=== PATIENT | female | born 1935 | race Caucasian/White ===

== ENCOUNTER 2017-09-25 17:59 | Emergency (ER) | payer MEDICARE, BC ==
--- NOTE | 2017-09-25 18:21 | Emergency Department Record ---
History of Present Illness - General Chief complaint: Lower Extremity Pain Stated complaint: RT LEG PAIN/SWELLING Time Seen by Provider: 09/25/17 18:07 Source: Patient Mode of Arrival: Ambulatory Limitations: No limitations - History of Present Illness Initial comments: The patient is here due to being sent down to the ER from rehab due to possibly having a DVT. The patient had a R knee replacement about 7 weeks ago and has had R leg swelling since. She did have a neg R leg Doppler about 3-4 weeks ago in Rehab. Today she went to her first rehab appointment here at [facility] and the therapist was concerned about a DVT so the patient was sent to the ER. She denies any CP, new SOB, leg pain, numbness, tingling or weakness. Additionally the patient is on Xarelto for Afib. MD Complaint: Extremity swelling Onset/Timin -: Week(s) Location: Right, Lower Leg History of Same: No Severity scale (1-10): 5 Quality: Aching Consistency: Constant Improves with: Nothing Worsens with: Walking, Weight bearing Associated Symptoms: Denies other symptoms - Related Data Home Medications Medication Instructions Recorded Confirmed Last Taken Magnesium 200 mg PO DAILY 09/25/17 09/25/17 Unknown Allergies Allergy/AdvReac Type Severity Reaction Status Date / Time cephalexin monohydrate Allergy Severe DIARRHEA Unverified 04/04/17 11:31 [From KEFLEX] nitroglycerin Allergy Severe HYPOTENSION Unverified 04/04/17 11:31 Penicillins Allergy Severe DIFFICULTY Unverified 04/04/17 11:31 BREATHING Sulfa (Sulfonamide Allergy Intermediate RASH Unverified 04/04/17 11:31 Antibiotics) codeine Allergy Unknown HYPERSENSIT Unverified 04/04/17 11:31 IVITY dronedarone HCl [From MULTAQ] Allergy Unknown HYPERSENSIT Unverified 04/04/17 11 :31 IVITY erythromycin base Allergy Unknown HIVES Unverified 04/04/17 11:31 [ERYTHROMYCIN BASE] gatifloxacin [From ZYMAXID] Allergy Unknown HYPERSENSIT Unverified 04/04/17 11: 31 IVITY hydrocodone bitartrate Allergy Unknown HYPERSENSIT Unverified 04/04/17 11:31 [From VICODIN] IVITY hydromorphone HCl Allergy Unknown HYPERSENSIT Unverified 04/04/17 11:31 IVITY levofloxacin [From LEVAQUIN] Allergy Unknown HYPERSENSIT Unverified 04/04/17 11: 31 IVITY metoprolol tartrate Allergy Unknown HYPERSENSIT Unverified 04/04/17 11:31 [From LOPRESSOR] IVITY minocycline HCl Allergy Unknown HYPERSENSIT Unverified 04/04/17 11:31 [From SOLODYN] IVITY morphine [MORPHINE] Allergy Unknown HYPERSENSIT Unverified 04/04/17 11:31 IVITY nitrofurantoin Allergy Unknown HYPERSENSIT Unverified 04/04/17 11:31 [NITROFURANTOIN] IVITY butorphanol tartrate AdvReac Unknown HYPERSENSIT Unverified 04/04/17 11:31 [From Stadol] IVITY blue tape Allergy PT UNSURE Uncoded 09/13/16 22:57 OF REACTION Travel Screening - Travel/Exposure Within Last 30 Days Have you traveled within the last 30 days?: No Review of Systems Constitutional: Denies: Chills, Fever Eyes: Denies: Eye discharge ENT: Denies: Congestion Respiratory: Denies: Cough, Dyspnea, Hemoptysis Cardiovascular: Denies: Arrhythmia, Chest pain Past Medical History - SOCIAL HISTORY Smoking Status: Former smoker Alcohol Use: None Drug Use: None - RESPIRATORY Hx Respiratory Disorders: Yes Hx Asthma: Yes Hx COPD: Yes Hx Pulmonary Embolism: Yes - CARDIOVASCULAR Hx Cardio Disorders: Yes Hx Irregular Heartbeat: Yes (a-fib) Hx Pacemaker/Defib: Yes (2010) - NEURO Hx Neuro Disorders: Yes 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) Hx Dizziness: Yes - GI Hx GI Disorders: Yes Hx Abdominal Pain: Yes Hx Hiatal Hernia: Yes (had surgery) Hx Liver Disease: Yes (?had liver stone removed 2014 (elevated liver enzymes @ that time)) Hx Nausea/Vomiting: Yes Comment:: hobson's esophagus - Hx Genitourinary Disorders: Yes Hx UTI: Yes (not recent) - ENDOCRINE Hx Endocrine Disorders: No - MUSCULOSKELETAL Hx Musculoskeletal Disorders: Yes Hx Arthritis: Yes (knees, neck, shoulders) - PSYCH Hx Psych Problems: Yes Hx Anxiety: Yes (situational) Hx Depression: Yes (situational) - HEMATOLOGY/ONCOLOGY Hx Hematology/Oncology Disorders: Yes Hx Blood Transfusions: Yes (FFP w/ ulcers) Family Medical History Any Significant Family History?: Yes Hx Cancer: Mother, Brother/Sister *Cancer Comment: pancreatic, lung, breast Hx Heart Disease: Father, Brother/Sister Physical Exam - General General Appearance: Alert, Oriented x3, Cooperative, No acute distress - Head Head exam: Atraumatic, Normocephalic, Normal inspection - Eye Eye exam: Normal appearance, PERRL - Neck Neck exam: Normal inspection, Full ROM. negative: Tenderness - Respiratory Respiratory exam: Rhonchi (at the bases. Prob chronic per the patient.). negative: Normal lung sounds bilaterally, Accessory muscle use, Chest wall tenderness, Decreased breath sounds, Rales, Respiratory distress - Cardiovascular Cardiovascular Exam: Normal heart sounds, Irregular rhythm. negative: Normal rhythm - GI/Abdominal GI/Abdominal exam: Soft, Normal bowel sounds. negative: Tenderness - Extremities Extremities exam: Normal capillary refill, Pedal edema (Trace R leg.), Other ( The feet DP pulses are 2+ and equal bilaterally.). negative: Normal inspection , Tenderness - Neurological Neurological exam: Alert, Normal gait (The patient is ambulating with her cane with no difficulty.). negative: Abnormal gait, Motor sensory deficit Course Vital Signs 09/25/17 18:02 Temperature 97.4 F L Pulse Rate 78 Respiratory 20 Rate Blood Pressure 135/71 Pulse Ox 94 L - Reevaluation(s) Reevaluation #1: The patient is resting comfortably with no new complaints. She is presently undergoing the doppler test. 09/25/17 18:33 Medical Decision Making - Data Complexity MDM Data: X-Ray Ordered and/or Reviewed - Radiology Data Radiology results: Report reviewed (R leg Doppler: Neg.) Disposition Disposition: Discharge Clinical Impression: Right leg swelling Disposition: Home, Self-Care Condition: (2) Stable Instructions: Leg Edema (ED) Additional Instructions: Please continue your regular medicines and use a compression stocking to the R leg during the day. Please see your PCP for recheck next week if not better. Return to the ER for any pain, increased swelling, fever, redness or knee issues. Forms: Patient Portal Access Time of Disposition: 18:35 Quality - Quality Measures Quality Measures: N/A - Blood Pressure Screening View Details: Yes Does Patient Have Any of the Following: No Blood Pressure Classification: Hypertensive Reading Systolic Measurement: 141 Diastolic Measurement: 70 Screening for High Blood Pressure: < Normal BP, F/U Not Required > [G8783]
--- NOTE | 2017-09-25 19:23 | Emergency Department Record ---
History of Present Illness - General Chief complaint: Lower Extremity Pain Stated complaint: RT LEG PAIN/SWELLING Time Seen by Provider: 09/25/17 18:07 Source: Patient Mode of Arrival: Ambulatory Limitations: No limitations - History of Present Illness Onset/Timin -: Week(s) Location: Right, Lower Leg History of Same: No Severity scale (1-10): 5 Quality: Aching Consistency: Constant Improves with: Nothing Worsens with: Walking, Weight bearing Associated Symptoms: Denies other symptoms - Related Data Home Medications Medication Instructions Recorded Confirmed Last Taken Magnesium 200 mg PO DAILY 09/25/17 09/25/17 Unknown Allergies Allergy/AdvReac Type Severity Reaction Status Date / Time cephalexin monohydrate Allergy Severe DIARRHEA Unverified 04/04/17 11:31 [From KEFLEX] nitroglycerin Allergy Severe HYPOTENSION Unverified 04/04/17 11:31 Penicillins Allergy Severe DIFFICULTY Unverified 04/04/17 11:31 BREATHING Sulfa (Sulfonamide Allergy Intermediate RASH Unverified 04/04/17 11:31 Antibiotics) codeine Allergy Unknown HYPERSENSIT Unverified 04/04/17 11:31 IVITY dronedarone HCl [From MULTAQ] Allergy Unknown HYPERSENSIT Unverified 04/04/17 11 :31 IVITY erythromycin base Allergy Unknown HIVES Unverified 04/04/17 11:31 [ERYTHROMYCIN BASE] gatifloxacin [From ZYMAXID] Allergy Unknown HYPERSENSIT Unverified 04/04/17 11: 31 IVITY hydrocodone bitartrate Allergy Unknown HYPERSENSIT Unverified 04/04/17 11:31 [From VICODIN] IVITY hydromorphone HCl Allergy Unknown HYPERSENSIT Unverified 04/04/17 11:31 IVITY levofloxacin [From LEVAQUIN] Allergy Unknown HYPERSENSIT Unverified 04/04/17 11: 31 IVITY metoprolol tartrate Allergy Unknown HYPERSENSIT Unverified 04/04/17 11:31 [From LOPRESSOR] IVITY minocycline HCl Allergy Unknown HYPERSENSIT Unverified 04/04/17 11:31 [From SOLODYN] IVITY morphine [MORPHINE] Allergy Unknown HYPERSENSIT Unverified 04/04/17 11:31 IVITY nitrofurantoin Allergy Unknown HYPERSENSIT Unverified 04/04/17 11:31 [NITROFURANTOIN] IVITY butorphanol tartrate AdvReac Unknown HYPERSENSIT Unverified 04/04/17 11:31 [From Stadol] IVITY blue tape Allergy PT UNSURE Uncoded 09/13/16 22:57 OF REACTION Travel Screening - Travel/Exposure Within Last 30 Days Have you traveled within the last 30 days?: No Review of Systems Constitutional: Denies: Chills, Fever Eyes: Denies: Eye discharge ENT: Denies: Congestion Respiratory: Denies: Cough, Dyspnea, Hemoptysis Cardiovascular: Denies: Arrhythmia, Chest pain Past Medical History - SOCIAL HISTORY Smoking Status: Former smoker Alcohol Use: None Drug Use: None - RESPIRATORY Hx Respiratory Disorders: Yes Hx Asthma: Yes Hx COPD: Yes Hx Pulmonary Embolism: Yes - CARDIOVASCULAR Hx Cardio Disorders: Yes Hx Irregular Heartbeat: Yes (a-) Hx Pacemaker/Defib: Yes (2010) - NEURO Hx Neuro Disorders: Yes 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) Hx Dizziness: Yes - GI Hx GI Disorders: Yes Hx Abdominal Pain: Yes Hx Hiatal Hernia: Yes (had surgery) Hx Liver Disease: Yes (?had liver stone removed 2014 (elevated liver enzymes @ that time)) Hx Nausea/Vomiting: Yes Comment:: hobson's esophagus - Hx Genitourinary Disorders: Yes Hx UTI: Yes (not recent) - ENDOCRINE Hx Endocrine Disorders: No - MUSCULOSKELETAL Hx Musculoskeletal Disorders: Yes Hx Arthritis: Yes (knees, neck, shoulders) - PSYCH Hx Psych Problems: Yes Hx Anxiety: Yes (situational) Hx Depression: Yes (situational) - HEMATOLOGY/ONCOLOGY Hx Hematology/Oncology Disorders: Yes Hx Blood Transfusions: Yes (FFP w/ ulcers) Family Medical History Any Significant Family History?: Yes Hx Cancer: Mother, Brother/Sister *Cancer Comment: pancreatic, lung, breast Hx Heart Disease: Father, Brother/Sister Physical Exam - General Limitations: No limitations Course Vital Signs 09/25/17 18:02 Temperature 97.4 F L Pulse Rate 78 Respiratory 20 Rate Blood Pressure 135/71 Pulse Ox 94 L - Reevaluation(s) Reevaluation #1: 09/25/17 19:21 Doppler RLE: No evidence for DVT Patient and family were updated on all results, patient verbalizes understanding of all results and appears stable for discharge at this time. Disposition Disposition: Discharge Clinical Impression: Right leg swelling Disposition: Home, Self-Care Condition: (2) Stable Instructions: Leg Edema (ED) Additional Instructions: Please continue your regular medicines and use a compression stocking to the R leg during the day. Please see your PCP for recheck next week if not better. Return to the ER for any pain, increased swelling, fever, redness or knee issues. Forms: Patient Portal Access Time of Disposition: 19:23 Quality - Quality Measures Quality Measures: N/A - Blood Pressure Screening Does Patient Have Any of the Following: No Blood Pressure Classification: Hypertensive Reading Systolic Measurement: 141 Diastolic Measurement: 70 Screening for High Blood Pressure: < First Hypertensive BP, F/U Documented > [ G8950] First Hypertensive Follow-up Interventions: Referral to alternative/primary care provider.
--- NOTE | 2017-09-26 20:55 | US VENOUS DOPPLER REPORT ---
EXAM: ULTRASOUND VENOUS DOPPLER LOWER EXT RT HISTORY: KNEE REPLACEMENT IN 2016. REDNESS AND SWELLING TODAY. TECHNIQUE: Gamino scale, color Doppler, and duplex Doppler evaluation of the deep venous structures of the right lower extremity from the common femoral vein through the popliteal vein is performed. Gamino scale imaging with color Doppler evaluation of the lower leg veins is also performed. COMPARISON: None. FINDINGS: Gamino scale images demonstrate the common femoral vein, greater saphenous vein, deep femoral vein, superficial femoral vein, and popliteal vein to be anechoic, and easily compressible. Normal venous waveforms with phasicity and augmentation are noted at all levels. No evidence of thrombus. The posterior tibial, peroneal, and anterior tibial veins appear patent, to the extent visualized. IMPRESSION: NO EVIDENCE OF DEEP VENOUS THROMBOSIS WITHIN THE RIGHT LOWER EXTREMITY. JOB NUMBER: [id number] [facility]
== END 2017-09-25 19:34 | disposition home or self-care (01) ==
LOC: ER 17:59
DX: R60.0 Localized edema (principal); M79.661 Pain in right lower leg; I48.91 Unspecified atrial fibrillation; Z79.01 Long term (current) use of anticoagulants; Z96.651 Presence of right artificial knee joint
CPT/HCPCS: 99283

== ENCOUNTER 2018-01-07 21:50 | Emergency (ER) | payer MEDICARE, BC ==
--- NOTE | 2018-01-07 22:21 | Emergency Department Record ---
History of Present Illness - General Chief Complaint: Hypertension Stated Complaint: HYPERTENSION Time Seen by Provider: 01/07/18 21:58 Source: Patient Mode of Arrival: Ambulatory Limitations: No limitations - History of Present Illness Initial Comments: 82 yo female presents to ED for evaluation of an elevated blood pressure reading at home (190's systolic). Patient denies any changes in her blood pressure medications, and denies any missed doses. Patient denies chest pain, weakness, or headache symptoms. Patient denies fevers, chills, or productive cough symptoms, and denies recent illness. 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 Patient denies focal weakness or slurred speech symptoms. MD Complaint: Other Onset/Timin -: Days(s) Timing: Gradual onset Description: Difficulty walking History of Same: No Severity: Moderate Worsens With: Nothing - Janette Coma Scale Eye Response: (4) Open spontaneously Motor Response: (6) Obeys commands Verbal Response: (5) Oriented [place] Total: 15 - Related Data Allergies Allergy/AdvReac Type Severity Reaction Status Date / Time cephalexin monohydrate Allergy Severe DIARRHEA Unverified 04/04/17 11:31 [From KEFLEX] nitroglycerin Allergy Severe HYPOTENSION Unverified 04/04/17 11:31 Penicillins Allergy Severe DIFFICULTY Unverified 04/04/17 11:31 BREATHING Sulfa (Sulfonamide Allergy Intermediate RASH Unverified 04/04/17 11:31 Antibiotics) codeine Allergy Unknown HYPERSENSIT Unverified 04/04/17 11:31 IVITY dronedarone HCl [From MULTAQ] Allergy Unknown HYPERSENSIT Unverified 04/04/17 11 :31 IVITY erythromycin base Allergy Unknown HIVES Unverified 04/04/17 11:31 [ERYTHROMYCIN BASE] gatifloxacin [From ZYMAXID] Allergy Unknown HYPERSENSIT Unverified 04/04/17 11: 31 IVITY hydrocodone bitartrate Allergy Unknown HYPERSENSIT Unverified 04/04/17 11:31 [From VICODIN] IVITY hydromorphone HCl Allergy Unknown HYPERSENSIT Unverified 04/04/17 11:31 IVITY levofloxacin [From LEVAQUIN] Allergy Unknown HYPERSENSIT Unverified 04/04/17 11: 31 IVITY metoprolol tartrate Allergy Unknown HYPERSENSIT Unverified 04/04/17 11:31 [From LOPRESSOR] IVITY minocycline HCl Allergy Unknown HYPERSENSIT Unverified 04/04/17 11:31 [From SOLODYN] IVITY morphine [MORPHINE] Allergy Unknown HYPERSENSIT Unverified 04/04/17 11:31 IVITY nitrofurantoin Allergy Unknown HYPERSENSIT Unverified 04/04/17 11:31 [NITROFURANTOIN] IVITY butorphanol tartrate AdvReac Unknown HYPERSENSIT Unverified 04/04/17 11:31 [From Stadol] IVITY blue tape Allergy PT UNSURE Uncoded 09/13/16 22:57 OF REACTION Travel Screening - Travel/Exposure Within Last 30 Days Have you traveled within the last 30 days?: No Review of Systems Constitutional: Denies: Chills, Fever, Malaise, Night sweats Eyes: Denies: Eye discharge, Eye pain ENT: Denies: Congestion, Ear pain, Epistaxis Respiratory: Denies: Cough, Dyspnea Cardiovascular: Denies: Chest pain, Dyspnea on exertion Endocrine: Denies: Fatigue, Heat or cold intolerance Gastrointestinal: Denies: Abdominal pain, Nausea, Vomiting Genitourinary: Denies: Incontinence, Retention Musculoskeletal: Denies: Arthralgia, Back pain, Gout, Joint swelling Skin: Denies: Bruising, Change in color Neurological: Reports: Vertigo (intermittent). 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) Hx Dizziness: Yes - GI Hx GI Disorders: Yes Hx Abdominal Pain: Yes Hx Hiatal Hernia: Yes (had surgery) Hx Liver Disease: Yes (?had liver stone removed 2014 (elevated liver enzymes @ that time)) Hx Nausea/Vomiting: Yes Comment:: hobson's esophagus - Hx Genitourinary Disorders: Yes Hx UTI: Yes (not recent) - ENDOCRINE Hx Endocrine Disorders: No - MUSCULOSKELETAL Hx Musculoskeletal Disorders: Yes Hx Arthritis: Yes (knees, neck, shoulders) - PSYCH Hx Psych Problems: Yes Hx Anxiety: Yes (situational) Hx Depression: Yes (situational) - HEMATOLOGY/ONCOLOGY Hx Hematology/Oncology Disorders: Yes Hx Blood Transfusions: Yes (FFP w/ ulcers) Family Medical History Any Significant Family History?: Yes Hx Cancer: Mother, Brother/Sister *Cancer Comment: pancreatic, lung, breast Hx Heart Disease: Father, Brother/Sister Physical Exam - General General Appearance: Alert, Oriented x3, Cooperative, No acute distress Limitations: No limitations - Head Head exam: Atraumatic, Normocephalic, Normal inspection Head exam detail: negative: Abrasion, Contusion, Pearson's sign, General tenderness, Hematoma, Laceration - Eye Eye exam: Normal appearance. negative: Conjunctival injection, Periorbital swelling, Periorbital tenderness, Scleral icterus - ENT Ear exam: negative: Auricular hematoma, Auricular trauma Nasal Exam: negative: Active bleeding, Discharge, Dried blood, Foreign body Mouth exam: negative: Drooling, Laceration, Muffled voice, Tongue elevation - Neck Neck exam: Normal inspection. negative: Meningismus, Tenderness - Respiratory Respiratory exam: Normal lung sounds bilaterally. negative: Rales, Respiratory distress, Rhonchi, Stridor - Cardiovascular Cardiovascular Exam: Regular rate, Normal rhythm, Normal heart sounds - GI/Abdominal GI/Abdominal exam: Soft. negative: Rebound, Rigid, Tenderness - Rectal Rectal exam: Deferred - exam: Deferred - Extremities Extremities exam: Normal inspection. negative: Calf tenderness, Pedal edema, Tenderness - Back Back exam: Denies: CVA tenderness (R), CVA tenderness (L) - Neurological Neurological exam: Alert, Normal gait, Oriented X3. negative: Motor sensory deficit - Psychiatric Psychiatric exam: Normal affect, Normal mood - Skin Skin exam: Normal color. negative: Abrasion Type of lesion: negative: abrasion Course Vital Signs 01/07/18 22:01 Temperature 97.8 F Pulse Rate [ 80 Pulse Ox Probe] Respiratory 28 H Rate Blood Pressure 141/83 [Right Arm] Pulse Ox 92 L - Reevaluation(s) Reevaluation #1: 01/07/18 22:17 Patient's RR reassessed, 20. Patient also reports wearing oxygen at night (93% on exam here), denies fevers, chills, or cough symptoms. Patient reports that as her BP is now normal and her home cough was likely off, she is ready to go home at this time. Disposition Disposition: Discharge Clinical Impression: Elevated blood pressure reading Disposition: Home, Self-Care Condition: (2) Stable Instructions: Hypertension (ED) Additional Instructions: Return to ED if your symptoms worsen or if you have any concerns. Follow-up with your family doctor in 3-5 days as directed. Time of Disposition: 22:21 Quality - Quality Measures Quality Measures: N/A - Blood Pressure Screening Does Patient Have Any of the Following: Active Dx of HTN Blood Pressure Classification: Pre-Hypertensive BP Reading Systolic Measurement: 141 Diastolic Measurement: 83 Screening for High Blood Pressure: Patient Exclusion, Hx of HTN [G9744]
== END 2018-01-07 22:26 | disposition home or self-care (01) ==
LOC: ER 21:50
DX: I10 Essential (primary) hypertension (principal); J44.9 Chronic obstructive pulmonary disease, unspecified; R26.2 Difficulty in walking, not elsewhere classified; I48.91 Unspecified atrial fibrillation; Z87.891 Personal history of nicotine dependence
CPT/HCPCS: 99282

== ENCOUNTER 2019-01-05 17:10 | Emergency (ER) | payer MEDICARE, BC ==
[2019-01-05 17:32] LABS: URINE APPEARANCE CLEAR; URINE BILIRUBIN NEGATIVE (NEGATIVE); URINE BLOOD NEGATIVE (NEGATIVE); URINE COLOR YELLOW; URINE GLUCOSE (UA) NEGATIVE (NEGATIVE); URINE KETONE NEGATIVE (NEGATIVE); URINE NITRITE NEGATIVE (NEGATIVE); URINE PROTEIN NEGATIVE (NEGATIVE); URINE UROBILINOGEN 0.2 E.U./dL (0.20 - 1.00)
[2019-01-05] MEDS ORDERED: ONDANSETRON HCL IV 4 MG/2 ML VIAL IVP ONE (17:39)
[2019-01-05] MEDS ORDERED: MORPHINE SULFATE 10 MG/ML VIAL IVP ONE (17:39)
[2019-01-05 17:41] LABS: URINE LEUKOCYTE ESTERASE TRACE (NEGATIVE); URINE RBC 0 - 2 (NONE SEEN); URINE WBC 0 - 2 (0-2/hpf)
--- NOTE | 2019-01-05 17:55 | Emergency Department Record ---
History of Present Illness - General Source: Patient Mode of Arrival: Ambulatory Limitations: No limitations - History of Present Illness Initial comments: pt has had r ap and flank pain since this am that is getting worse. she has n but no v/c/d. she has had hiatal hernia repair and cari. she has afib and is on xarelto. she has a hx of ulcers. Onset/Timin -: Hour(s) Radiation: R flank Severity scale (1-10): 8 Quality: Aching Consistency: Constant Patient : No Associated Symptoms: Abdominal pain, Nausea/vomiting <Lamar Bower - Last Filed: 01/05/19 19:05> <Boubacar Frazier - Last Filed: 01/05/19 21:35> - General Chief complaint: Flank Pain Stated complaint: ABD PAIN / LOWER BACK AND SIDE Time Seen by Provider: 01/05/19 17:32 - Related Data Allergies Allergy/AdvReac Type Severity Reaction Status Date / Time cephalexin monohydrate Allergy Severe DIARRHEA Verified 01/05/19 17:26 [From KEFLEX] nitroglycerin Allergy Severe HYPOTENSION Verified 01/05/19 17:26 Penicillins Allergy Severe DIFFICULTY Verified 01/05/19 17:26 BREATHING Sulfa (Sulfonamide Allergy Intermediate RASH Verified 01/05/19 17:26 Antibiotics) codeine Allergy Unknown HYPERSENSIT Verified 01/05/19 17:26 IVITY dronedarone HCl [From MULTAQ] Allergy Unknown HYPERSENSIT Verified 01/05/19 17: 26 IVITY erythromycin base Allergy Unknown HIVES Verified 01/05/19 17:26 [ERYTHROMYCIN BASE] gatifloxacin [From ZYMAXID] Allergy Unknown HYPERSENSIT Verified 01/05/19 17:26 IVITY hydrocodone bitartrate Allergy Unknown HYPERSENSIT Verified 01/05/19 17:26 [From VICODIN] IVITY hydromorphone HCl Allergy Unknown HYPERSENSIT Verified 01/05/19 17:26 IVITY levofloxacin [From LEVAQUIN] Allergy Unknown HYPERSENSIT Verified 01/05/19 17:26 IVITY metoprolol tartrate Allergy Unknown HYPERSENSIT Verified 01/05/19 17:26 [From LOPRESSOR] IVITY minocycline HCl Allergy Unknown HYPERSENSIT Verified 01/05/19 17:26 [From SOLODYN] IVITY morphine [MORPHINE] Allergy Unknown HYPERSENSIT Verified 01/05/19 17:26 IVITY nitrofurantoin Allergy Unknown HYPERSENSIT Verified 01/05/19 17:26 [NITROFURANTOIN] IVITY butorphanol tartrate AdvReac Unknown HYPERSENSIT Verified 01/05/19 17:26 [From Stadol] IVITY blue tape Allergy PT UNSURE Uncoded 01/05/19 17:26 OF REACTION Travel Screening - Travel/Exposure Within Last 30 Days Have you traveled within the last 30 days?: No - Travel/Exposure Within Last Year Have you traveled outside the [place] in the last year?: No - Additonal Travel Details Have you been exposed to anyone with a communicable illness?: No - Travel Symptoms Symptom Screening: None <Lamar Bower - Last Filed: 01/05/19 19:05> Review of Systems Reviewed: No additional complaints except as noted below Constitutional: Reports: As per HPI. Denies: Chills, Fever, Malaise, Night sweats, Weakness, Weight change Eyes: Reports: As per HPI. Denies: Eye discharge, Eye pain, Photophobia, Vision change ENT: Reports: As per HPI. Denies: Congestion, Dental pain, Ear pain, Epistaxis , Hearing loss, Throat pain Respiratory: Reports: As per HPI. Denies: Cough, Dyspnea, Hemoptysis, Stridor, Wheezes Cardiovascular: Reports: As per HPI, Arrhythmia. Denies: Chest pain, Dyspnea on exertion, Edema, Murmurs, Orthopnea, Palpitations, Paroxysmal nocturnal dyspnea, Rheumatic Fever, Syncope Endocrine: Reports: As per HPI. Denies: Fatigue, Heat or cold intolerance, Polydipsia, Polyuria Gastrointestinal: Reports: As per HPI, Abdominal pain, Nausea. Denies: Constipation, Diarrhea, Hematemesis, Hematochezia, Melena, Vomiting Genitourinary: Reports: As per HPI. Denies: Abnormal menses, Discharge, Dyspareunia, Dysuria, Frequency, Hematuria, Incontinence, Retention, Urgency Musculoskeletal: Reports: As per HPI. Denies: Arthralgia, Back pain, Gout, Joint swelling, Myalgia, Neck pain Skin: Reports: As per HPI. Denies: Bruising, Change in color, Change in hair/ nails, Lesions, Pruritus, Rash Neurological: Reports: As per HPI. Denies: Abnormal gait, Confusion, Headache, Numbness, Paresthesias, Seizure, Tingling, Tremors, Vertigo, Weakness Psychiatric: Reports: As per HPI. Denies: Anxiety, Auditory hallucinations, Depression, Homicidal thoughts, Suicidal thoughts, Visual hallucinations Hematological/Lymphatic: Reports: As per HPI. 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) Hx Dizziness: Yes - GI Hx GI Disorders: Yes Hx Abdominal Pain: Yes Hx Hiatal Hernia: Yes (had surgery) Hx Liver Disease: Yes (?had liver stone removed 2014 (elevated liver enzymes @ that time)) Hx Nausea/Vomiting: Yes Comment:: hobson's esophagus - Hx Genitourinary Disorders: Yes Hx UTI: Yes (not recent) - ENDOCRINE Hx Endocrine Disorders: No - MUSCULOSKELETAL Hx Musculoskeletal Disorders: Yes Hx Arthritis: Yes (knees, neck, shoulders) - PSYCH Hx Psych Problems: Yes Hx Anxiety: Yes (situational) Hx Depression: Yes (situational) - HEMATOLOGY/ONCOLOGY Hx Hematology/Oncology Disorders: Yes Hx Blood Transfusions: Yes (FFP w/ ulcers) <Lamar Bower - Last Filed: 01/05/19 19:05> Family Medical History Any Significant Family History?: No Hx Cancer: Mother, Brother/Sister *Cancer Comment: pancreatic, lung, breast Hx Heart Disease: Father, Brother/Sister <Lamar Bower - Last Filed: 01/05/19 19:05> Physical Exam - General General Appearance: Alert, Oriented x3, Cooperative, Moderate distress - Head Head exam: Normal inspection - Eye Eye exam: Normal appearance, PERRL, EOMI Pupils: Normal accommodation - ENT ENT exam: Normal exam, Mucous membranes moist, Normal external ear exam, Normal orophraynx Ear exam: Normal external inspection. negative: External canal tenderness Nasal Exam: Normal inspection. negative: Discharge, Sinus tenderness Mouth exam: Normal external inspection, Tongue normal Teeth exam: Normal inspection. negative: Dental caries Throat exam: Normal inspection. negative: Tonsillar erythema, Tonsillar exudate - Neck Neck exam: Normal inspection, Full ROM. negative: Tenderness - Respiratory Respiratory exam: Normal lung sounds bilaterally. negative: Respiratory distress - Cardiovascular Cardiovascular Exam: Normal heart sounds, Irregular rhythm, Tachycardia - GI/Abdominal GI/Abdominal exam: Soft, Normal bowel sounds, Tenderness - Rectal Rectal exam: Deferred - exam: Deferred - Extremities Extremities exam: Normal inspection, Full ROM, Normal capillary refill. negative: Tenderness - Back Back exam: Reports: CVA tenderness (R), Full ROM. Denies: Muscle spasm, Rash noted, Tenderness - Neurological Neurological exam: Alert, CN II-XII intact, Normal gait, Oriented X3, Reflexes normal - Psychiatric Psychiatric exam: Normal affect, Normal mood - Skin Skin exam: Dry, Intact, Normal color, Warm <Lamar Bowre - Last Filed: 01/05/19 19:05> Course Vital Signs 01/05/19 17:13 Temperature 97.9 F Pulse Rate 117 H Respiratory 18 Rate Blood Pressure 132/95 Pulse Ox 94 L - Reevaluation(s) Reevaluation #1: 01/05/19 18:[address] is neg for acute. pt continues to have pain. pt refuses morphine and states she can only take tramadol with benadryl. pn is still a 7/ 10. gi cocktail did not help pain. sinc pt is still in so much pain i am ordering a ct w contrast. pts labs are unremarkable and offer no explanation for her significant pain. i had initially ordered the ct w/o contrast because i was concerned about her aorta and did not want to wait for her kidney function to get a ct Reevaluation #2: 01/05/19 19:05 care is being turned over to dr frazier pending ct with contrast <Lamar Bower - Last Filed: 01/05/19 19:05> Vital Signs 01/05/19 01/05/19 01/05/19 17:13 18:57 21:06 Temperature 97.9 F Pulse Rate 117 H Pulse Rate [ 75 86 Pulse Ox Probe] Respiratory 18 18 16 Rate Blood Pressure 132/95 Blood Pressure 129/88 125/81 [Left] Pulse Ox 94 L 95 93 L - Reevaluation(s) Reevaluation #3: The patient is doing well at this time. She is still having mild R flank pain but no nausea, vomiting, or fever. She states the pain is improved and she is very thirsty and is drinking fluids well. I did discuss the neg CT with contrast and the fact it did not demonstrate any R flank abnormality. The CT did demonstrate mild gastric wall thickening but that is not where the patient' s pain is located. She does feel comfortable going home and is instructed to use her home Tylenol and Tramadol as needed for pain. The patient is up ambulating normally with no problems or issues. 01/05/19 21:23 01/05/19 21:35 <Boubacar Frazier - Last Filed: 01/05/19 21:35> Medical Decision Making - Lab Data Result diagrams: 01/05/19 17:55 01/05/19 17:55 Lab Results 01/05/19 Range/Units 17: Urine Color Yellow Urine Appearance Clear Urine pH 5.5 (5.0-8.0) Ur Specific [place] 1.015 (1.002-1.030) Urine Protein Negative (NEGATIVE) Urine Glucose (UA) Negative (NEGATIVE) Urine Ketones Negative (NEGATIVE) Urine Blood Negative (NEGATIVE) Urine Nitrite Negative (NEGATIVE) Urine Bilirubin Negative (NEGATIVE) Urine Urobilinogen 0.2 (0.20 - 1.00) E.U./dL Ur Leukocyte Esterase Trace H (NEGATIVE) Urine RBC 0 - 2 (NONE SEEN) Urine WBC 0 - 2 (0-2/hpf) Ur Epithelial Cells 3 - 6 (FEW) <Lamar Bower - Last Filed: 01/05/19 19:05> - Data Complexity MDM Data: X-Ray Ordered and/or Reviewed - Lab Data Result diagrams: 01/05/19 17:55 01/05/19 17:55 Lab Results 01/05/19 01/05/19 01/05/19 Range/Units 17:26 17:55 17:55 WBC 8.7 (4.2-12.2) K/uL RBC 4.89 (3.80-5.40) M/uL Hgb 13.3 (11.6-16.0) gm/dl Hct 42.6 (35.0-47.0) % MCV 87.1 (81-97) fl MCH 27.2 (27-33) pg MCHC 31.2 L (32-36) g/dl RDW 15.6 H (11.5-14.5) % Plt Count 310 (130-400) K/uL MPV 9.7 (7.4-10.4) fl Gran % 65.2 (47-80) % Lymphocytes % 19.7 (16-45) % Monocytes % 11.4 H (0-9) % Eosinophils % 3.4 (0-6) % Basophils % 0.3 (0-6) % Sodium 138 (136-145) mmol/L Potassium 5.2 H (3.4-4.5) mmol/L Chloride 99 (98-107) mmol/L Carbon Dioxide 26.0 (22-29) mmol/L Anion Gap 13.0 (7-16) BUN 16 (8-23) mg/dL Creatinine 0.9 (0.5-0.9) mg/dL Estimated GFR > 60 mL/min Random Glucose 95 (74-109) mg/dL Lactic Acid (0.5-2.2) mmol/L Calcium 9.0 (8.8-10.2) mg/dL Total Bilirubin 0.30 (0.2-1.0) mg/dL AST 22 (10.0-35.0) U/L ALT 9 (<33) U/L Alkaline Phosphatase 53 (45-87) U/L Total Protein 6.9 (6.6-8.7) g/dL Albumin 3.9 L (4.0-5.0) g/dL Globulin 3.0 (1.4-4.8) gm/dL Albumin/Globulin Ratio 1.3 (1.1-1.8) Lipase 14 (13-60) U/L Urine Color Yellow Urine Appearance Clear Urine pH 5.5 (5.0-8.0) Ur Specific [place] 1.015 (1.002-1.030) Urine Protein Negative (NEGATIVE) Urine Glucose (UA) Negative (NEGATIVE) Urine Ketones Negative (NEGATIVE) Urine Blood Negative (NEGATIVE) Urine Nitrite Negative (NEGATIVE) Urine Bilirubin Negative (NEGATIVE) Urine Urobilinogen 0.2 (0.20 - 1.00) E.U./dL Ur Leukocyte Esterase Trace H (NEGATIVE) Urine RBC 0 - 2 (NONE SEEN) Urine WBC 0 - 2 (0-2/hpf) Ur Epithelial Cells 3 - 6 (FEW) 01/05/19 Range/Units 19:39 WBC (4.2-12.2) K/uL RBC (3.80-5.40) M/uL Hgb (11.6-16.0) gm/dl Hct (35.0-47.0) % MCV (81-97) fl MCH (27-33) pg MCHC (32-36) g/dl RDW (11.5-14.5) % Plt Count (130-400) K/uL MPV (7.4-10.4) fl Gran % (47-80) % Lymphocytes % (16-45) % Monocytes % (0-9) % Eosinophils % (0-6) % Basophils % (0-6) % Sodium (136-145) mmol/L Potassium (3.4-4.5) mmol/L Chloride (98-107) mmol/L Carbon Dioxide (22-29) mmol/L Anion Gap (7-16) BUN (8-23) mg/dL Creatinine (0.5-0.9) mg/dL Estimated GFR mL/min Random Glucose (74-109) mg/dL Lactic Acid 1.5 (0.5-2.2) mmol/L Calcium (8.8-10.2) mg/dL Total Bilirubin (0.2-1.0) mg/dL AST (10.0-35.0) U/L ALT (<33) U/L Alkaline Phosphatase (45-87) U/L Total Protein (6.6-8.7) g/dL Albumin (4.0-5.0) g/dL Globulin (1.4-4.8) gm/dL Albumin/Globulin Ratio (1.1-1.8) Lipase (13-60) U/L Urine Color Urine Appearance Urine pH (5.0-8.0) Ur Specific [place] (1.002-1.030) Urine Protein (NEGATIVE) Urine Glucose (UA) (NEGATIVE) Urine Ketones (NEGATIVE) Urine Blood (NEGATIVE) Urine Nitrite (NEGATIVE) Urine Bilirubin (NEGATIVE) Urine Urobilinogen (0.20 - 1.00) E.U./dL Ur Leukocyte Esterase (NEGATIVE) Urine RBC (NONE SEEN) Urine WBC (0-2/hpf) Ur Epithelial Cells (FEW) - Radiology Data Radiology results: Report reviewed (Abd CT with Contrast: Neg for acute changes. ) <Boubacar Frazier - Last Filed: 01/05/19 21:35> Disposition <Lamar Bower - Last Filed: 01/05/19 19:05> Disposition: Discharge Time of Disposition: 21:26 <Boubacar Frazier - Last Filed: 01/05/19 21:35> Clinical Impression: Flank pain, acute Disposition: Home, Self-Care Condition: (2) Stable Instructions: Flank Pain (ED) Additional Instructions: Please drink plenty of fluids and take your home pain medicines. Please see your family doctor this week for recheck and please return to the ER for any worsening pain, fever, or vomiting. Forms: Patient Portal Access Quality - Quality Measures Quality Measures: Blunt Head Trauma (>2yr) - Blunt Head Trauma - Adult Quality Measure: Measure #415: Utilization of CT for Minor Blunt Head Trauma ICD10 Codes Entered: Yes Janette Score: Please complete [place] Coma Scale above - Blood Pressure Screening Does Patient Have Any of the Following: No Blood Pressure Classification: Hypertensive Reading Systolic Measurement: 132 Diastolic Measurement: 95 <Lamar Bower - Last Filed: 01/05/19 19:05> - Quality Measures Quality Measures: Blunt Head Trauma (>2yr) - Blunt Head Trauma - Adult Quality Measure: Measure #415: Utilization of CT for Minor Blunt Head Trauma ICD10 Codes Entered: Yes Janette Score: Please complete Janette Coma Scale above - Blood Pressure Screening Does Patient Have Any of the Following: No Blood Pressure Classification: Hypertensive Reading Systolic Measurement: 132 Diastolic Measurement: 95 <Boubacar Frazier - Last Filed: 01/05/19 21:35>
[2019-01-05 18:03] LABS: BASO % 0.3 % (0-6); EOS % 3.4 % (0-6); GRAN % 65.2 % (47-80); HEMATOCRIT 42.6 % (35.0-47.0); HEMOGLOBIN 13.3 gm/dl (11.6-16.0); LYMPH % 19.7 % (16-45); MEAN CELL VOLUME 87.1 fl (81-97); MEAN CORPUSCULAR HEMOGLOBIN 27.2 pg (27-33); MEAN CORPUSCULAR HGB CONC 31.2 g/dl (32-36); MEAN PLATELET VOLUME 9.7 fl (7.4-10.4); MONO % 11.4 % (0-9); PLATELET COUNT 310 K/uL (130-400); RED BLOOD COUNT 4.89 M/uL (3.80-5.40); RED CELL DISTRIBUTION WIDTH 15.6 % (11.5-14.5); WHITE BLOOD COUNT W/O DIFF 8.7 K/uL (4.2-12.2)
[2019-01-05 18:17] LABS: BLOOD UREA NITROGEN 16 mg/dL (8-23); CREATININE 0.9 mg/dL (0.5-0.9); EST GLOMERULAR FILTRATION RATE > 60 mL/min
[2019-01-05 18:18] LABS: LIPASE 14 U/L (13-60); TOTAL PROTEIN 6.9 g/dL (6.6-8.7)
[2019-01-05 18:20] LABS: GLUCOSE,RANDOM 95 mg/dL (74-109)
[2019-01-05 18:22] LABS: ALT/SGPT 9 U/L (<33); AST/SGOT 22 U/L (10.0-35.0)
[2019-01-05 18:23] LABS: ALB/GLOB RATIO 1.3 (1.1-1.8); ALBUMIN 3.9 g/dL (4.0-5.0); ALKALINE PHOSPHATASE 53 U/L (45-87)
[2019-01-05] MEDS ORDERED: MAGNESIUM HYDROXIDE/AL HYDROX 30 ML, LIDOCAINE VISC 2% 15ML 15 ML PO ONE ×2 (18:31)
[2019-01-05] MEDS ORDERED: TRAMADOL HCL 50 MG TABLET PO ONE (18:49)
[2019-01-05] MEDS ORDERED: DIPHENHYDRAMINE HCL 25 MG CAPSULE PO ONE (18:50)
--- NOTE | 2019-01-08 10:40 | CT SCAN REPORT ---
EXAM: CT OF THE ABDOMEN AND PELVIS WITHOUT CONTRAST HISTORY: RIGHT SIDED ABDOMINAL PAIN. TECHNIQUE: Noncontrast images are obtained from the dome of the diaphragm to the symphysis pubis. Comparison: 03/30/15. FINDINGS: The lung bases and pleural spaces are clear except for minor scarring on the left. The liver demonstrates scattered granulomas, but is otherwise unremarkable. The gallbladder is surgically absent. The pancreas is free of focal masses or pancreatic duct distention. Numerous calcified granulomas are present in an otherwise unremarkable spleen. The adrenal glands are normal. The kidneys demonstrate no evidence of hydronephrosis, soft tissue mass or perinephric inflammation. No urolithiasis is demonstrated. The GI tract demonstrates evidence of prior Jose [place] fundoplication. The stomach and small bowel are unremarkable. There is mild diverticular change of the sigmoid colon without diverticulitis. There is no ascites or free air. There is no evidence of retroperitoneal adenopathy. No lytic or blastic lesions are identified in the skeleton. No abdominal wall hernias are seen. IMPRESSION: NO ACUTE INTRAABDOMINAL PROCESS. JOB NUMBER: [id number] [facility]
--- NOTE | 2019-01-08 10:49 | CT SCAN REPORT ---
EXAM: CT OF THE ABDOMEN AND PELVIS WITH CONTRAST HISTORY: FIVE HOURS OF RIGHT ABDOMINAL PAIN. TECHNIQUE: After the intravenous administration of 100 ml Omnipaque 300, axial images are obtained from the dome of the diaphragm to the symphysis pubis. Comparison: 01/05/19. FINDINGS: The lung bases are clear except for mild fibrotic change, predominantly on the left. Scattered hepatic granulomas are present. There is no evidence of intrahepatic biliary dilatation. The gallbladder is surgically absent. The extrahepatic biliary tree is unremarkable. There is pancreatic atrophy, but no mass, peripancreatic inflammation or pancreatic duct distention. Multiple splenic granulomas are present without soft tissue mass. The adrenal glands are normal. There is no hydronephrosis, renal soft tissue mass or perinephric inflammation. There are postoperative changes of hiatal hernia repair. There is mild thickening of the gastric antrum. The small bowel is unremarkable. There is mild diverticular change of the sigmoid colon without diverticulitis. There is no evidence of mesenteric or retroperitoneal adenopathy. Atherosclerosis of the aortoiliac system is present without aneurysm or obvious stenosis. No pelvic mass or adenopathy is seen. There is no evidence of osteolytic or blastic lesions. There are degenerative changes of the lumbar spine. IMPRESSION: THICKENING OF THE GASTRIC ANTRUM, CORRELATE CLINICALLY FOR AN ELEMENT OF GASTRITIS. NO EVIDENCE OF OBSTRUCTION OR PERFORATION. DIVERTICULOSIS WITHOUT DIVERTICULITIS. JOB NUMBER: [id number] [facility]
== END 2019-01-05 21:42 | disposition home or self-care (01) ==
LOC: ER 17:10
DX: R10.9 Unspecified abdominal pain (principal); M54.5 Low back pain; J44.9 Chronic obstructive pulmonary disease, unspecified; I48.91 Unspecified atrial fibrillation; Z79.01 Long term (current) use of anticoagulants; Z95.0 Presence of cardiac pacemaker; I69.954 Hemiplegia and hemiparesis following unspecified cerebrovascular disease affecting left non-dominant side
CPT/HCPCS: 99284 ×2; 96374; 83605; 83690; 85025; 80053; 81001; 74176; 74177; Q9967; J2405

== ENCOUNTER 2019-02-22 11:48 | Observation (INO) | payer MEDICARE, BC ==
[2019-02-22] MEDS ORDERED: 0.9 % SODIUM CHLORIDE 1000ML 1,000 ML IV ONE (12:02)
[2019-02-22] MEDS ORDERED: ONDANSETRON HCL IV 4 MG/2 ML VIAL IVP ONE (12:02)
--- NOTE | 2019-02-22 12:08 | Emergency Department Record ---
History of Present Illness - General Chief complaint: Nausea, Vomiting, Diarrhea Stated complaint: NAUSEA,VOMITING Time Seen by Provider: 02/22/19 11:53 Source: Patient Mode of Arrival: Ambulatory Limitations: No limitations - History of Present Illness Initial comments: 84 yo female presents with nausea, vomiting and abdominal pain the last three days. No diarrhea. She had a normal bowel movement today. She denies any blood in the vomit. She has had several abdominal surgeries in the past including hiatel hernia, gall bladder, retained stone. Her appetite is decreased with constant nausea. Her last normal meal was Monday. No chest pain, no shortness of breath. Dr Calero is her PCP. She had an US 01/18/19 that was negative for any acute process. She had a CT scan of the abdomen 01/05/19 that demonstrated thickening of the gastric antrum. MD complaint: Abdominal pain, Nausea, Vomiting Onset/Timin -: Days(s) Description of Vomiting: Watery Description of Diarrhea: Water Location: Diffuse, Epigastric Severity: Moderate Quality: Cramping Consistency: Intermittent Improves with: None Worsens with: None Context: Other Associated Symptoms: Fever/chills, Loss of appetite, Nausea/vomiting - Related Data Home Medications Medication Instructions Recorded Confirmed Last Taken C,E,Zinc,Copper 11/Pmgku5b/Lut 1 each PO DAILY 02/22/19 02/22/19 Unknown [Ocuvite Adult 50 Plus Softgel] Guaifenesin [Mucinex] 600 mg PO ASDIR 02/22/19 02/22/19 Unknown Allergies Allergy/AdvReac Type Severity Reaction Status Date / Time Penicillins Allergy Severe DIFFICULTY Verified 02/22/19 11:59 BREATHING Sulfa (Sulfonamide Allergy Intermediate RASH Verified 02/22/19 11:59 Antibiotics) codeine Allergy Unknown HYPERSENSIT Verified 02/22/19 11:59 IVITY dronedarone HCl [From MULTAQ] Allergy Unknown HYPERSENSIT Verified 02/22/19 11: 59 IVITY erythromycin base Allergy Unknown HIVES Verified 02/22/19 11:59 [ERYTHROMYCIN BASE] gatifloxacin [From ZYMAXID] Allergy Unknown HYPERSENSIT Verified 02/22/19 11:59 IVITY hydrocodone bitartrate Allergy Unknown HYPERSENSIT Verified 02/22/19 11:59 [From VICODIN] IVITY hydromorphone HCl Allergy Unknown HYPERSENSIT Verified 02/22/19 11:59 IVITY levofloxacin [From LEVAQUIN] Allergy Unknown HYPERSENSIT Verified 02/22/19 11:59 IVITY metoprolol tartrate Allergy Unknown HYPERSENSIT Verified 02/22/19 11:59 [From LOPRESSOR] IVITY minocycline HCl Allergy Unknown HYPERSENSIT Verified 02/22/19 11:59 [From SOLODYN] IVITY morphine [MORPHINE] Allergy Unknown HYPERSENSIT Verified 02/22/19 11:59 IVITY nitrofurantoin Allergy Unknown HYPERSENSIT Verified 02/22/19 11:59 [NITROFURANTOIN] IVITY cephalexin monohydrate AdvReac Severe DIARRHEA Verified 02/22/19 11:59 [From KEFLEX] nitroglycerin AdvReac Severe HYPOTENSION Verified 02/22/19 11:59 butorphanol tartrate AdvReac Unknown HYPERSENSIT Verified 02/22/19 11:59 [From Stadol] IVITY blue tape Allergy PT UNSURE Uncoded 01/05/19 17:26 OF REACTION Travel Screening - Travel/Exposure Within Last 30 Days Have you traveled within the last 30 days?: No Review of Systems Constitutional: Reports: Malaise, Weakness. Denies: Chills, Fever Eyes: Denies: Eye discharge, Eye pain, Photophobia, Vision change ENT: Denies: Congestion, Throat pain Respiratory: Denies: Cough, Dyspnea, Hemoptysis, Stridor, Wheezes Cardiovascular: Denies: Chest pain, Palpitations, Syncope Endocrine: Reports: Fatigue Gastrointestinal: Reports: Abdominal pain, Nausea, Vomiting. Denies: Constipation, Diarrhea, Hematemesis, Hematochezia, Melena Genitourinary: Denies: Dysuria Musculoskeletal: Denies: Arthralgia, Back pain, Myalgia Skin: Denies: Bruising, Change in color, Rash Neurological: Denies: Confusion, Headache Psychiatric: Denies: Anxiety Hematological/Lymphatic: Denies: Easy bleeding, Easy bruising Past Medical History - SOCIAL HISTORY Smoking Status: Former smoker Alcohol Use: None Drug Use: None - RESPIRATORY Hx Respiratory Disorders: Yes Hx Asthma: Yes Hx Bronchitis: Yes Hx COPD: Yes Hx Pulmonary Embolism: Yes Hx Sleep Apnea: Yes - CARDIOVASCULAR Hx Cardio Disorders: Yes Hx Deep Vein Thrombosis: Yes Hx Irregular Heartbeat: Yes (-) Hx Pacemaker/Defib: Yes (2010) - NEURO Hx Neuro Disorders: Yes 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) Hx Dizziness: Yes - GI Hx GI Disorders: Yes Hx Abdominal Pain: Yes Hx Hiatal Hernia: Yes (had surgery) Hx Liver Disease: Yes (that liver stone removed 2014 (elevated liver enzymes @ that time)) Hx Nausea/Vomiting: Yes Comment:: hobson's esophagus - Hx Genitourinary Disorders: Yes Hx UTI: Yes (not recent) - ENDOCRINE Hx Endocrine Disorders: No - MUSCULOSKELETAL Hx Musculoskeletal Disorders: Yes Hx Arthritis: Yes (knees, neck, shoulders) - PSYCH Hx Psych Problems: Yes Hx Anxiety: Yes (situational) Hx Depression: Yes (situational) - HEMATOLOGY/ONCOLOGY Hx Hematology/Oncology Disorders: Yes Hx Blood Transfusions: Yes (FFP w/ ulcers) Family Medical History Any Significant Family History?: Yes Hx Cancer: Mother, Brother/Sister *Cancer Comment: pancreatic, lung, breast Hx Heart Disease: Father, Brother/Sister Physical Exam - General General Appearance: Alert, Oriented x3, Cooperative, No acute distress Limitations: No limitations - Head Head exam: Atraumatic, Normal inspection - Eye Eye exam: Normal appearance. negative: Conjunctival injection - ENT ENT exam: Normal exam, Mucous membranes moist Ear exam: Normal external inspection Nasal Exam: Normal inspection Mouth exam: Normal external inspection - Neck Neck exam: Normal inspection - Respiratory Respiratory exam: Normal lung sounds bilaterally. negative: Respiratory distress - Cardiovascular Cardiovascular Exam: Regular rate, Normal rhythm, Normal heart sounds - GI/Abdominal GI/Abdominal exam: Soft, Tenderness (soft but diffusely tender on palpation). negative: Distended, Guarding - Rectal Rectal exam: Deferred - exam: Deferred - Extremities Extremities exam: Normal inspection. negative: Pedal edema, Tenderness - Back Back exam: Denies: CVA tenderness (R), CVA tenderness (L) - Neurological Neurological exam: Alert, Oriented X3 - Psychiatric Psychiatric exam: Normal affect, Normal mood. negative: Agitated, Anxious - Skin Skin exam: Dry, Intact, Normal color, Warm Course Vital Signs 02/22/19 11:50 Temperature 97.7 F Pulse Rate 68 Respiratory 24 Rate Blood Pressure 109/70 Pulse Ox 95 - Reevaluation(s) Reevaluation #1: Prior CT and US reviewed from December. Vitals reviewed. No acute changes. 02/22/19 12:08 02/22/19 12:26 No acute abnormality on the CBC 02/22/19 12:49 No acute changes on the CMP, Lipase, or Lactic Acid 02/22/19 14:33 The nausea is improved but not gone. The CT scan was read as non specific thickening of the transverse colon and descending colon. No other acute findings. Given her persistent symptoms of vomiting for two days without keeping down meals or fluids recommend admission for supportive care. 02/22/19 14:34 02/22/19 15:00 EKG #1: 14:51 Rate: 75 Rhythm: afib with paced rhythm Mackey: L Intervals: Qtc 470 ST segments: paced rhythm Prior: 11/18/16 similar morphology with intermittent pacing 02/22/19 15:13 The case was discussed with Geovanna Rogers POSTIE for admission. Plan is for supportive care with IVF, antiemetics, PPI. Medical Decision Making - Lab Data Result diagrams: 02/22/19 12:00 02/22/19 12:00 Disposition Disposition: Admit Clinical Impression: Nausea and vomiting Disposition: Still a Patient at [facility] Decision to Admit: Admit from ER Decision to Admit Date: 02/22/19 Decision to Admit Time: 14:36 Time Discussed w/Accepting Physician: 15:13 Condition: (2) Stable Forms: Patient Portal Access Time of Disposition: 14:36 Quality - Quality Measures Quality Measures: N/A - Blood Pressure Screening Does Patient Have Any of the Following: Active Dx of HTN Blood Pressure Classification: Normal BP Reading Systolic Measurement: 109 Diastolic Measurement: 70 Screening for High Blood Pressure: Patient Exclusion, Hx of HTN [[id number]]
[2019-02-22 12:12] LABS: HEMATOCRIT 39.9 % (35.0-47.0); HEMOGLOBIN 12.8 gm/dl (11.6-16.0); MEAN CELL VOLUME 86.2 fl (81-97); MEAN CORPUSCULAR HEMOGLOBIN 27.6 pg (27-33); MEAN CORPUSCULAR HGB CONC 32.1 g/dl (32-36); MEAN PLATELET VOLUME 9.3 fl (7.4-10.4); PLATELET COUNT 343 K/uL (130-400); RED BLOOD COUNT 4.63 M/uL (3.80-5.40); RED CELL DISTRIBUTION WIDTH 15.4 % (11.5-14.5); WHITE BLOOD COUNT W/O DIFF 11.4 K/uL (4.2-12.2)
[2019-02-22] MEDS ORDERED: PROMETHAZINE HCL 12.5 MG in 0.9 % SODIUM CHLORIDE 100ML 100 ML IVPB ONE (12:22)
[2019-02-22 12:23] LABS: BLOOD UREA NITROGEN 14 mg/dL (8-23); CREATININE 0.8 mg/dL (0.5-0.9); EST GLOMERULAR FILTRATION RATE > 60 mL/min
[2019-02-22 12:24] LABS: LIPASE 11 U/L (13-60); TOTAL PROTEIN 6.4 g/dL (6.6-8.7)
[2019-02-22 12:26] LABS: GLUCOSE,RANDOM 104 mg/dL (74-109)
[2019-02-22 12:28] LABS: ALB/GLOB RATIO 1.6 (1.1-1.8); ALBUMIN 3.9 g/dL (4.0-5.0); ALT/SGPT 17 U/L (<33); AST/SGOT 59 U/L (10.0-35.0)
[2019-02-22 12:29] LABS: ALKALINE PHOSPHATASE 58 U/L (35-104)
[2019-02-22 12:53] LABS: INR 1.1; PROTHROMBIN TIME (PATIENT) 11.3 SECONDS (9.5-12.1)
[2019-02-22] MEDS ORDERED: PANTOPRAZOLE SODIUM IV 40 MG VIAL IVP ONE (13:12)
[2019-02-22] MEDS ORDERED: ACETAMINOPHEN 1,000 MG/100 ML BTL IVPB ONE (13:13)
[2019-02-22] MEDS ORDERED: DIPHENHYDRAMINE HCL 50 MG/ML VIAL IVP ONE (14:25)
[2019-02-22] MEDS ORDERED: ONDANSETRON HCL IV 4 MG/2 ML VIAL IVP PRN (15:29)
[2019-02-22] MEDS ORDERED: POTASSIUM CHLORIDE/D5-0.9%NACL 20 MEQ/1,000 ML BAG IV SCH (15:29)
[2019-02-22] MEDS ORDERED: ACETAMINOPHEN 325 MG TAB PO PRN (15:29)
[2019-02-22] MEDS ORDERED: TRAMADOL HCL 50 MG TABLET PO PRN (15:29)
[2019-02-22] MEDS ORDERED: BREO (FLUTICASONE/VILANTEROL) 100MCG/25MCG INHALER INH SCH (15:29)
[2019-02-22] MEDS ORDERED: ALBUTEROL SULFATE (0.083%) 2.5 MG/3 ML NEB INH PRN (15:29)
[2019-02-22 17:42] LABS: URINE APPEARANCE CLEAR; URINE BILIRUBIN NEGATIVE (NEGATIVE); URINE BLOOD NEGATIVE (NEGATIVE); URINE COLOR YELLOW; URINE GLUCOSE (UA) NEGATIVE (NEGATIVE); URINE KETONE NEGATIVE (NEGATIVE); URINE LEUKOCYTE ESTERASE NEGATIVE (NEGATIVE); URINE NITRITE NEGATIVE (NEGATIVE); URINE PROTEIN NEGATIVE (NEGATIVE); URINE UROBILINOGEN 0.2 E.U./dL (0.20 - 1.00)
[2019-02-22] MEDS ORDERED: ZOLPIDEM TARTRATE 5 MG TABLET PO SCH (22:00)
[2019-02-22] MEDS ORDERED: RIVAROXABAN 20 MG TABLET PO SCH (22:00)
[2019-02-23 07:27] LABS: BASO % 0.4 % (0-6); EOS % 1.6 % (0-6); GRAN % 72.8 % (47-80); HEMATOCRIT 38.2 % (35.0-47.0); MEAN CELL VOLUME 88.2 fl (81-97); MEAN CORPUSCULAR HEMOGLOBIN 27.7 pg (27-33); MEAN CORPUSCULAR HGB CONC 31.4 g/dl (32-36); MEAN PLATELET VOLUME 9.2 fl (7.4-10.4); MONO % 10.2 % (0-9); PLATELET COUNT 274 K/uL (130-400); RED BLOOD COUNT 4.33 M/uL (3.80-5.40); RED CELL DISTRIBUTION WIDTH 15.7 % (11.5-14.5); WHITE BLOOD COUNT W/O DIFF 8.5 K/uL (4.2-12.2)
[2019-02-23 07:45] LABS: ALB/GLOB RATIO 1.4 (1.1-1.8); ALBUMIN 3.4 g/dL (4.0-5.0); ALKALINE PHOSPHATASE 54 U/L (35-104); ALT/SGPT 28 U/L (<33); AST/SGOT 56 U/L (10.0-35.0); BLOOD UREA NITROGEN 12 mg/dL (8-23); CREATININE 0.9 mg/dL (0.5-0.9); EST GLOMERULAR FILTRATION RATE > 60 mL/min; GLUCOSE,RANDOM 92 mg/dL (74-109); TOTAL PROTEIN 5.8 g/dL (6.6-8.7)
[2019-02-23] MEDS ORDERED: [UNRECOGNIZED DRUG - OTHER] PO SCH (10:00)
[2019-02-23] MEDS ORDERED: PANTOPRAZOLE SODIUM IV 40 MG VIAL IV SCH (10:00)
[2019-02-23] MEDS ORDERED: DILTIAZEM HCL 120 MG ER CAPSULE PO SCH (10:00)
[2019-02-23] MEDS ORDERED: FLUTICASONE PROPIONATE 50MCG NASAL 16 GM BTL SCH (10:00)
[2019-02-23] MEDS ORDERED: BREO (FLUTICASONE/VILANTEROL) 100MCG/25MCG INHALER INH SCH (10:00)
--- NOTE | 2019-02-23 10:57 | History & Physical ---
History of Present Illness - Date of Service Date of Service for History & Physical: 02/23/19 - History of Present Illness Admitting Diagnosis: intractible nausea and vomiting History of Present Illness: 84 year old female patient presented to ED with complaints of nausea, vomiting, and abdominal pain for the past 3 days. Patient denied diarrhea or blood in the vomit. Patient reports several abdominal surgeries in the past including hiatal hernia repair, cholecystectomy, liver stone removal, and Hobson's esophagus. Patient denies chest pain, shortness of breath, fever, or sick contacts. Patient had an abd US 01/18/19 that was negative for acute process, and an abd CT 01/05/19 that demonstrated thickening of the gastric antrum. Patient has noted a decreased appetite with constant nausea over the past month. 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 Past medical history includes: hiatal hernia repair, cholecystectomy, liver stone removal, PPM, rhizotomy, chronic a-fib (Xarelto), sleep apnea with home O2 at night, COPD, arthritis, macular degeneration, Hobson's esophagus, and a CVA. PCP: Dr. Calero ED Course: Temp 97.7, HR 68, RR 24, BP 109/70, Pulse ox 95% CBC, CMP, UA, Lipase, and Lactic Acid all normal Abd/pelvic CT: non-specific thickening of the transverse and descending colon, colitis vs transient anatomic distention EKG: Rate 75, a-fib with paced rhythm 02/23/19: Patient A&O x 4, resting comfortably in bed with daughter at bedside. Patient denies diarrhea, reports mild diffuse abdominal tenderness with palpation. Mild nausea, has tolerated clear liquids this morning. Patient ambulating to bathroom with cane. WBC and CMP unchanged, VS stable throughout the night. Travel Screening - Travel/Exposure Within Last 30 Days Have you traveled within the last 30 days?: No - Travel/Exposure Within Last Year Have you traveled outside the [place] in the last year?: No - Additonal Travel Details Have you been exposed to anyone with a communicable illness?: No - Travel Symptoms Symptom Screening: Weakness, Stomach Pain, Lack of Appetite Review of Systems Constitutional: Reports: Malaise, Weakness. Denies: Chills, Fever Eyes: Denies: Eye discharge, Eye pain, Photophobia, Vision change ENT: Denies: Congestion, Throat pain Respiratory: Denies: Cough, Dyspnea, Hemoptysis, Stridor, Wheezes Cardiovascular: Denies: Chest pain, Palpitations, Syncope Endocrine: Reports: Fatigue Gastrointestinal: Reports: Abdominal pain, Nausea, Vomiting. Denies: Constipation, Diarrhea, Hematemesis, Hematochezia, Melena Genitourinary: Denies: Dysuria Musculoskeletal: Denies: Arthralgia, Back pain, Myalgia Skin: Denies: Bruising, Change in color, Rash Neurological: Denies: Confusion, Headache Psychiatric: Denies: Anxiety Hematological/Lymphatic: Denies: Easy bleeding, Easy bruising Past Medical History - SOCIAL HISTORY Smoking Status: Former smoker - RESPIRATORY Hx Respiratory Disorders: Yes Hx Asthma: Yes Hx Bronchitis: Yes Hx COPD: Yes Hx Pulmonary Embolism: Yes Hx Sleep Apnea: Yes - CARDIOVASCULAR Hx Cardio Disorders: Yes Hx Deep Vein Thrombosis: Yes Hx Irregular Heartbeat: Yes (a-fib) Hx Pacemaker/Defib: Yes (2010) - NEURO Hx Neuro Disorders: Yes 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) Hx Dizziness: Yes - GI Hx GI Disorders: Yes Hx Abdominal Pain: Yes Hx Hiatal Hernia: Yes (had surgery) Hx Liver Disease: Yes (that liver stone removed 2014 (elevated liver enzymes @ that time)) Hx Nausea/Vomiting: Yes Comment:: hobson's esophagus - Hx Genitourinary Disorders: Yes Hx UTI: Yes (not recent) - ENDOCRINE Hx Endocrine Disorders: No - MUSCULOSKELETAL Hx Musculoskeletal Disorders: Yes Hx Arthritis: Yes (knees, neck, shoulders) - PSYCH Hx Psych Problems: Yes Hx Anxiety: Yes (situational) Hx Depression: Yes (situational) - HEMATOLOGY/ONCOLOGY Hx Hematology/Oncology Disorders: Yes Hx Blood Transfusions: Yes (FFP w/ ulcers) Family Medical History Any Significant Family History?: Yes Hx Cancer: Mother, Brother/Sister *Cancer Comment: pancreatic, lung, breast Hx Heart Disease: Father, Brother/Sister H&P Meds/Allergies - Allergies Allergies: Allergies Allergy/AdvReac Type Severity Reaction Status Date / Time Penicillins Allergy Severe DIFFICULTY Verified 02/22/19 11:59 BREATHING Sulfa (Sulfonamide Allergy Intermediate RASH Verified 02/22/19 11:59 Antibiotics) codeine Allergy Unknown HYPERSENSIT Verified 02/22/19 11:59 IVITY dronedarone HCl [From MULTAQ] Allergy Unknown HYPERSENSIT Verified 02/22/19 11: 59 IVITY erythromycin base Allergy Unknown HIVES Verified 02/22/19 11:59 [ERYTHROMYCIN BASE] gatifloxacin [From ZYMAXID] Allergy Unknown HYPERSENSIT Verified 02/22/19 11:59 IVITY hydrocodone bitartrate Allergy Unknown HYPERSENSIT Verified 02/22/19 11:59 [From VICODIN] IVITY hydromorphone HCl Allergy Unknown HYPERSENSIT Verified 02/22/19 11:59 IVITY levofloxacin [From LEVAQUIN] Allergy Unknown HYPERSENSIT Verified 02/22/19 11:59 IVITY metoprolol tartrate Allergy Unknown HYPERSENSIT Verified 02/22/19 11:59 [From LOPRESSOR] IVITY minocycline HCl Allergy Unknown HYPERSENSIT Verified 02/22/19 11:59 [From SOLODYN] IVITY morphine [MORPHINE] Allergy Unknown HYPERSENSIT Verified 02/22/19 11:59 IVITY nitrofurantoin Allergy Unknown HYPERSENSIT Verified 02/22/19 11:59 [NITROFURANTOIN] IVITY cephalexin monohydrate AdvReac Severe DIARRHEA Verified 02/22/19 11:59 [From KEFLEX] nitroglycerin AdvReac Severe HYPOTENSION Verified 02/22/19 11:59 butorphanol tartrate AdvReac Unknown HYPERSENSIT Verified 02/22/19 11:59 [From Stadol] IVITY blue tape Allergy PT UNSURE Uncoded 01/05/19 17:26 OF REACTION - Home Medications Home Medications Medication Instructions Recorded Confirmed Last Taken C,E,Zinc,Copper 11/Gjlit6i/Lut 1 each PO DAILY 02/22/19 02/22/19 Unknown [Ocuvite Adult 50 Plus Softgel] Guaifenesin [Mucinex] 600 mg PO ASDIR 02/22/19 02/22/19 Unknown - Active Medications Active Medications: Current Medications Acetaminophen (Tylenol 325mg) 650 mg PO Q6H PRN PRN Reason: PAIN - MILD(1-4)/FEVER Last Admin: 02/22/19 18:41 Dose: 650 mg Albuterol Sulfate (Albuterol Sulfate) 2.5 mg INH RESP.Q4H PRN PRN Reason: DIFFICULTY IN BREATHING Diltiazem HCl (Cardizem Cd) 120 mg PO DAILY JENNIFER Last Admin: 02/23/19 09:40 Dose: 120 mg Fluticasone Propionate (Flonase) 1 spray NA DAILY [facility] Last Admin: 02/23/19 09:44 Dose: 1 spray Potassium Chloride/Dextrose/Sod Cl () 20 meq in 1,000 mls @ 100 mls/hr IV Q8H [facility] Last Infusion: 02/23/19 01:13 Dose: 0 mls/hr Ondansetron HCl (Zofran) 4 mg IVP Q4H PRN PRN Reason: NAUSEA Pantoprazole Sodium (Protonix Iv) 40 mg IV DAILY [facility] Patient Own Med: (Ocuvite Equivalent) 1 each PO DAILY [facility] Rivaroxaban (Xarelto) 15 mg PO QHS [facility] Last Admin: 02/22/19 21:18 Dose: 15 mg Tramadol HCl (Ultram) 50 mg PO Q12H PRN PRN Reason: Pain - General Zolpidem Tartrate (Ambien) 10 mg PO QHS [facility] Last Admin: 02/22/19 21:16 Dose: 10 mg Physical Exam - Vital Signs Vital Signs: Vital Signs - Last 24 Hrs Temp Pulse Pulse Resp BP BP Pulse Ox 02/23/19 08:30 98.1 F 63 18 101/52 93 L 02/22/19 22:15 97.7 F 57 L 16 105/59 99 02/22/19 21:35 99 02/22/19 15:30 73 22 97/65 94 L 02/22/19 15:29 97.3 F L 68 16 101/50 91 L 02/22/19 13:43 72 20 143/102 94 L 02/22/19 11:50 97.7 F 68 24 109/70 95 - General General Appearance: Alert, Oriented x3, Cooperative, No acute distress Limitations: No limitations - Head Head exam: Atraumatic, Normal inspection - Eye Eye exam: Normal appearance. negative: Conjunctival injection - ENT ENT exam: Normal exam, Mucous membranes moist Ear exam: Normal external inspection Nasal Exam: Normal inspection Mouth exam: Normal external inspection - Neck Neck exam: Normal inspection - Respiratory Respiratory exam: Normal lung sounds bilaterally. negative: Respiratory distress - Cardiovascular Cardiovascular Exam: Normal rhythm, Normal heart sounds Peripheral Pulses: 2+: Radial (R), Radial (L) - GI/Abdominal GI/Abdominal exam: Soft, Normal bowel sounds, Tenderness (soft but generalized tenderness on palpation). negative: Distended, Guarding - Rectal Rectal exam: Deferred - exam: Deferred - Extremities Extremities exam: Normal inspection. negative: Pedal edema, Tenderness - Back Back exam: Denies: CVA tenderness (R), CVA tenderness (L) - Neurological Neurological exam: Alert, Oriented X3 - Psychiatric Psychiatric exam: Normal affect, Normal mood. negative: Agitated, Anxious - Skin Skin exam: Dry, Intact, Normal color, Warm Results - Labs Result Diagrams: 02/23/19 07:15 02/23/19 07:15 Labs Last 24 Hours: Laboratory Results - last 24 hr 02/22/19 02/22/19 02/22/19 12:00 12:00 12:00 WBC 11.4 RBC 4.63 Hgb 12.8 Hct 39.9 MCV 86.2 MCH 27.6 MCHC 32.1 RDW 15.4 H Plt Count 343 MPV 9.3 Gran % Neutrophils % 84.0 H Band Neutrophils % 0.0 Lymphocytes % Monocytes % Eosinophils % Not Reportable Basophils % Not Reportable Lymphocytes 8.0 L Monocytes 6.0 Basophils 0.0 Eosinophil Count 2.0 PT 11.3 INR 1.1 APTT 31.0 Sodium 136 Potassium 4.0 Chloride 97 L Carbon Dioxide 26.0 Anion Gap 13.0 BUN 14 Creatinine 0.8 Estimated GFR > 60 Random Glucose 104 Lactic Acid Calcium 9.1 Total Bilirubin 0.50 AST 59 H ALT 17 Alkaline Phosphatase 58 Total Protein 6.4 L Albumin 3.9 L Globulin 2.5 Albumin/Globulin Ratio 1.6 Lipase 11 L Urine Color Urine Appearance Urine pH Ur Specific Wilcox Urine Protein Urine Glucose (UA) Urine Clinitest Urine Ketones Urine Blood Urine Nitrite Urine Bilirubin Urine Ictotest Prot Sulfosalicylic Acd Urine Urobilinogen Ur Leukocyte Esterase 02/22/19 02/22/19 02/22/19 12:00 12:02 15:29 WBC RBC Hgb Hct MCV MCH MCHC RDW Plt Count MPV Gran % Neutrophils % Band Neutrophils % Lymphocytes % Monocytes % Eosinophils % Basophils % Lymphocytes Monocytes Basophils Eosinophil Count PT INR APTT Sodium Potassium Chloride Carbon Dioxide Anion Gap BUN Creatinine Estimated GFR Random Glucose Lactic Acid 1.6 Calcium Total Bilirubin AST ALT Alkaline Phosphatase Total Protein Albumin Globulin Albumin/Globulin Ratio Lipase Urine Color Cancelled Yellow Urine Appearance Cancelled Clear Urine pH Cancelled 6.0 Ur Specific Wilcox Cancelled <= 1.005 Urine Protein Cancelled Negative Urine Glucose (UA) Cancelled Negative Urine Clinitest Cancelled Urine Ketones Cancelled Negative Urine Blood Cancelled Negative Urine Nitrite Cancelled Negative Urine Bilirubin Cancelled Negative Urine Ictotest Cancelled Prot Sulfosalicylic Acd Cancelled Urine Urobilinogen Cancelled 0.2 Ur Leukocyte Esterase Cancelled Negative 02/23/19 02/23/19 07:15 07:15 WBC 8.5 RBC 4.33 Hgb 12.0 Hct 38.2 MCV 88.2 MCH 27.7 MCHC 31.4 L RDW 15.7 H Plt Count 274 MPV 9.2 Gran % 72.8 Neutrophils % Band Neutrophils % Lymphocytes % 15.0 L Monocytes % 10.2 H Eosinophils % 1.6 Basophils % 0.4 Lymphocytes Monocytes Basophils Eosinophil Count PT INR APTT Sodium 138 Potassium 4.2 Chloride 101 Carbon Dioxide 26.0 Anion Gap 11.0 BUN 12 Creatinine 0.9 Estimated GFR > 60 Random Glucose 92 Lactic Acid Calcium 8.5 L Total Bilirubin 0.40 AST 56 H ALT 28 Alkaline Phosphatase 54 Total Protein 5.8 L Albumin 3.4 L Globulin 2.4 Albumin/Globulin Ratio 1.4 Lipase Urine Color Urine Appearance Urine pH Ur Specific Wilcox Urine Protein Urine Glucose (UA) Urine Clinitest Urine Ketones Urine Blood Urine Nitrite Urine Bilirubin Urine Ictotest Prot Sulfosalicylic Acd Urine Urobilinogen Ur Leukocyte Esterase VTE H&P Assessment - Risk for VTE Risk for VTE: Yes Risk Level: Moderate Risk Assessment Date: 02/23/19 Risk Assessment Time: 11:36 VTE Orders Placed or Will Be Placed: No VTE Reason for No Prophylaxis: Contraindicated (Continue home dose of Xarelto 15mg daily) Plan - Inpatient Certification Inpatient Certification: Admit to inpatient care: Based on my medical assessment, after consideration of patient's risk factors (age, co-morbidities and patient presenting symptoms and acuity), I expect that this patient will remain in the hospital greater than or equal to two midnights and that the services needed warrant inpatient care because: Patient Risk Factors: [] Estimated length of stay: [] The patient may reasonably be expected to be discharged or transferred to a hospital within 96 hours after admission to [facility]. Services needed: [] Post hospital care (if known): [] I certify that my determination is in accordance with my understanding of Medicare requirements for reasonable and necessary inpatient services. - Detailed Diagnosis and Plan (1) Nausea and vomiting Current Visit: Yes Status: Acute Base Code: R11.2 - NAUSEA WITH VOMITING, UNSPECIFIED Comment: 02/23/19: - Nausea, vomiting, abdominal pain x 3-4 days - Zofran IVP prn nausea - IV fluids - NPO (2) Abdominal pain Current Visit: Yes Status: Acute Base Code: R10.9 - UNSPECIFIED ABDOMINAL PAIN Comment: 02/23/19: - Generalized abdominal tenderness with palpation - Abd/pelvic CT: colonic thickening of the transverse and decending colon, colitis vs transient anatomic distention - WBC, CMP, lactic, and UA negative - NPO - IV fluids (3) DVT prophylaxis Current Visit: No Status: Acute Base Code: [id number] - Comment: 02/23/19: - High risk due to age and hosiptalization - Continue home dose of Xarelto 15mg daily - Encourage ambulation (4) Full code status Current Visit: Yes Status: Acute Base Code: Z78.9 - OTHER SPECIFIED HEALTH STATUS Comment: 02/23/19: - Patient is a full code
[2019-02-23] MEDS ORDERED: PANTOPRAZOLE SODIUM 40 MG TABLET PO SCH (11:30)
--- NOTE | 2019-02-23 11:47 | Discharge Summary ---
Providers Discharge Summary Date: 02/23/19 Date of admission: 02/22/19 15:24 Expected Date of Discharge: 02/23/19 Attending physician: TOMMY ELIAS Primary care physician: ROBERT LAW D.O. Consults: Consult Orders 02/23/19 11:19 Consult NOW Reason For Exam: abd pain, vomiting, history of multiple GI surgeri Consulting Provider: TRINI CORDERO Physician Instructions: outpatient consult Physical Exam - Vital Signs Vital Signs: Vital Signs - Last 24 Hrs Temp Pulse Pulse Resp BP BP Pulse Ox 02/23/19 09:00 63 18 02/23/19 08:30 98.1 F 63 18 101/52 93 L 02/22/19 22:15 97.7 F 57 L 16 105/59 99 02/22/19 21:35 99 02/22/19 15:30 73 22 97/65 94 L 02/22/19 15:29 97.3 F L 68 16 101/50 91 L 02/22/19 13:43 72 20 143/102 94 L 02/22/19 11:50 97.7 F 68 24 109/70 95 - General General Appearance: Alert, Oriented x3, Cooperative, No acute distress Limitations: No limitations - Head Head exam: Atraumatic, Normal inspection - Eye Eye exam: Normal appearance. negative: Conjunctival injection - ENT ENT exam: Normal exam, Mucous membranes moist Ear exam: Normal external inspection Nasal Exam: Normal inspection Mouth exam: Normal external inspection - Neck Neck exam: Normal inspection - Respiratory Respiratory exam: Normal lung sounds bilaterally. negative: Respiratory distress - Cardiovascular Cardiovascular Exam: Normal rhythm, Normal heart sounds Peripheral Pulses: 2+: Radial (R), Radial (L) - GI/Abdominal GI/Abdominal exam: Soft, Normal bowel sounds, Tenderness (soft but generalized tenderness on palpation). negative: Distended, Guarding - Rectal Rectal exam: Deferred - exam: Deferred - Extremities Extremities exam: Normal inspection. negative: Pedal edema, Tenderness - Back Back exam: Denies: CVA tenderness (R), CVA tenderness (L) - Neurological Neurological exam: Alert, Normal gait, Oriented X3 - Psychiatric Psychiatric exam: Normal affect, Normal mood. negative: Agitated, Anxious - Skin Skin exam: Dry, Intact, Normal color, Warm Hospitalization - Hospitalization Admission Diagnosis: intractible nausea and vomiting - Problem List/Discharge Diagnosis (1) Nausea and vomiting Status: Acute Base Code: R11.2 - NAUSEA WITH VOMITING, UNSPECIFIED Comment: 02/23/19: - Nausea, vomiting, abdominal pain x 3-4 days - Zofran IVP prn nausea - IV fluids - Tolerating clear liquids at this time - Will dc home with zofran, encouraged to follow bland diet and advance as tolerated (2) Abdominal pain Status: Acute Base Code: R10.9 - UNSPECIFIED ABDOMINAL PAIN Comment: 02/23/19 : - Generalized abdominal tenderness with palpation - Abd/pelvic CT: colonic thickening of the transverse and decending colon, colitis vs transient anatomic distention - WBC, CMP, lactic, and UA negative - Advance diet as tolerated - GI consult outpatient due to abdominal pain with extensive GI surgeries, and intermittent nausea x 1 month (3) DVT prophylaxis Status: Acute Base Code: [id number] - Comment: 02/23/19: - High risk due to age and hosiptalization - Continue home dose of Xarelto 15mg daily - Encourage ambulation (4) Full code status Status: Acute Base Code: Z78.9 - OTHER SPECIFIED HEALTH STATUS Comment: 02/23: - Patient is a full code - Hospitalization Course Disposition: Home, Self-Care Hospital Course: 84 year old female patient presented to ED with complaints of nausea, vomiting, and abdominal pain for the past 3 days. Patient denied diarrhea or blood in the vomit. Patient reports several abdominal surgeries in the past including hiatal hernia repair, cholecystectomy, liver stone removal, and Melvin's esophagus. Patient denies chest pain, shortness of breath, fever, or sick contacts. Patient had an abd US 01/18/19 that was negative for acute process, and an abd CT 01/05/19 that demonstrated thickening of the gastric antrum. Patient has noted a decreased appetite with constant nausea over the past month. Patient denies having a sheet taker at this time. Past medical history includes: hiatal hernia repair, cholecystectomy, liver stone removal, PPM, rhizotomy, chronic a-fib (Xarelto), sleep apnea with home O2 at night, COPD, arthritis, macular degeneration, Melvin's esophagus, and a CVA. PCP: Dr. Law ED Course: Temp 97.7, HR 68, RR 24, BP 109/70, Pulse ox 95% CBC, CMP, UA, Lipase, and Lactic Acid all normal Abd/pelvic CT: non-specific thickening of the transverse and descending colon, colitis vs transient anatomic distention EKG: Rate 75, a-fib with paced rhythm 02/23/19: Patient A&O x 4, resting comfortably in bed with daughter at bedside. Patient denies diarrhea, reports mild diffuse abdominal tenderness with palpation. Mild nausea, has tolerated clear liquids this morning. Patient ambulating to bathroom with cane. WBC and CMP unchanged, VS stable throughout the night. UPDATE: Patient tolerating advancing diet. No diarrhea or vomiting since admission. GI consult outpatient. Follow-up with PCP in 10-14 days, daniel wilcox. Procedures: Imaging and X-Rays 02/22/19 12:03 ABDOMEN/PELVIS W CONTRAST [CT] Stat Cardiology Procedures 02/22/19 14:37 EKG NOW 02/22/19 15:29 Security Assurance Specialist NOW Abnormal Labs: Abnormal Lab Results 02/22/19 02/22/19 02/23/19 Range/Units 12:00 12:00 07:15 MCHC 31.4 L (32-36) g/dl RDW 15.4 H 15.7 H (11.5-14.5) % Neutrophils % 84.0 H (47-80) % Lymphocytes % 15.0 L (16-45) % Monocytes % 10.2 H (0-9) % Lymphocytes 8.0 L (16-45) % Chloride 97 L (98-107) mmol/L Calcium (8.8-10.2) mg/dL AST 59 H (10.0-35.0) U/L Total Protein 6.4 L (6.6-8.7) g/dL Albumin 3.9 L (4.0-5.0) g/dL Lipase 11 L (13-60) U/L 02/23/19 Range/Units 07:15 MCHC (32-36) g/dl RDW (11.5-14.5) % Neutrophils % (47-80) % Lymphocytes % (16-45) % Monocytes % (0-9) % Lymphocytes (16-45) % Chloride (98-107) mmol/L Calcium 8.5 L (8.8-10.2) mg/dL AST 56 H (10.0-35.0) U/L Total Protein 5.8 L (6.6-8.7) g/dL Albumin 3.4 L (4.0-5.0) g/dL Lipase (13-60) U/L Condition at Discharge: (2) Stable Discharge Medications - Discharge Medications Prescriptions: Ondansetron HCl [Zofran] 4 mg PO Q6H PRN #20 tablet PRN Reason: Nausea Home Medications: Ambulatory Orders Furosemide [Lasix] 20 mg PO BID 03/30/15 [Last Taken 09/13/16] Potassium Chloride [Klor-Con] 10 meq PO DAILY 03/30/15 [Last Taken 09/13/16] Tramadol HCl [Ultram] 50 mg PO Q12H PRN 03/30/15 [Last Taken 09/13/16] Zolpidem Tartrate [Ambien] 10 mg PO QHS 03/30/15 [Last Taken 09/12/16 22:00] Diltiazem HCl [Cartia Xt] 120 mg PO DAILY 11/03/15 [Last Taken 09/13/16 08:00] Fluticasone Propionate [Flonase] 1 spray EACH NARES DAILY 11/03/15 [Last Taken 09/13/16] Fluticasone/Vilanterol [Breo Ellipta 100-25 Mcg INH] 1 puff IH QD puff [Last Taken 09/13/16] Omeprazole 40 mg PO QD cap 01/04/16 [Last Taken 09/13/16 07:00] Rivaroxaban [Xarelto] 15 mg PO QHS tab 01/04/16 [Last Taken 09/12/16 22:00] Acetaminophen 500 mg PO QID PRN tab 10/25/18 [Last Taken Unknown] C,E,Zinc,Copper 11/Mwlik2n/Lut [Ocuvite Adult 50 Plus Softgel] 1 each PO DAILY 02/22/19 [Last Taken Unknown] Guaifenesin [Mucinex] 600 mg PO ASDIR 02/22/19 [Last Taken Unknown] Ondansetron HCl [Zofran] 4 mg PO Q6H PRN #20 tablet 02/23/19 [Last Taken Unknown ] Discharge Plan - Discharge Instructions Diet at Discharge: Advance to Usual Diet Instructions: Diet for Stomach Ulcers and Gastritis (GEN), Acute Nausea and Vomiting (DC), Acute Diarrhea (GEN), Acute Abdominal Pain (DC) Additional Instructions: 2 Activity: TOLERATED 2 Diet: Advance to Usual Diet 2 Consults: [] 2 Follow Up: []WITH FAMILY DOCTOR SCHEDULED 2 Dressing/Wound Care: (Type) (Change) 2 Additional: [] - Slowly advance your diet, starting with bland foods - Drink plenty of water - We have placed an order for a GI referral with Dr. Cordero, they will be contacting you to schedule - Follow-up with your PCP, Dr. Law, in 10-14 days Quality Measures - Quality Measures Quality Measures: Advance Directives, Documentation of Current Medications in Medical Record, Elder Maltreatment Screen and Follow-Up Plan, Screening for High Blood Pressure and F/U Documented - Current Medications Quality Measure: Measure #130: Documentation of Current Medications Documentation of Current Medications: <Current Medications Documented/Reviewed> [G8427] - Blood Pressure Screening Quality Measure: Screening for High Blood Pressure and Follow-Up Documented Does Patient Have Any of the Following: No Blood Pressure Classification: Normal BP Reading Systolic Measurement: 97 Diastolic Measurement: 65 Screening for High Blood Pressure: < Normal BP, F/U Not Required > [G8783] - Advance Directives Quality Measure: Measure #47: Care Plan Advance Directives Established: No Advance Directives Information Provided To Patient: No Advance Directives on File: Yes Living Will: Yes Power of Bronze Plater: Yes Power of Bronze Plater Name: Ora Pope Advance Care Planning: Not Discussed or Documented [[id number]] - Elder Abuse Suspicion Index Screening: Elder Abuse Suspicion Index Screening Rely on people for bathing, dressing, shopping, banking, etc: No Prevented from getting food, clothes, medication, etc: No Made to feel shamed or threatened by someone: No Forced to sign papers or use money against will: No Feel afraid, touched in ways not wanted or hurt physically: No Poor eye contact, withdrawn, malnourished, cuts or bruises: No Screening Result: Negative result EASI Reference Information: Carl PAN, Farrah C, Ana D, Nikki Quiroz.Development and validation of a tool to assist physicians identification of elder abuse: The Elder Abuse Suspicion Index (EASI ). Journal of Elder Abuse and Neglect, 2008; 20 (3): 276-300. - Elder Maltreatment Screen Quality Measures: Elder Maltreatment Screen and Follow-Up Plan Elder Maltreatment Screen: <Negative, No Follow-Up Plan Required> [[id number]]
--- NOTE | 2019-02-25 07:44 | CT SCAN REPORT ---
EXAM: CT OF THE ABDOMEN AND PELVIS WITH CONTRAST HISTORY: NAUSEA AND STOMACH PAIN FOR TWO DAYS. PRIOR APPENDECTOMY. HIATAL HERNIA REPAIR. HYSTERECTOMY. TECHNIQUE: CT of the abdomen and pelvis was performed with 90 ml Omnipaque 300 intravenous contrast. Comparison: CT of the abdomen and pelvis 01/05/19. FINDINGS: Partially seen cardiac leads. Similar appearance of bibasilar pulmonary fibrotic findings. Scattered punctate calcified granulomas throughout the liver and spleen. Absent gallbladder. Fatty atrophy of the pancreas. Unremarkable adrenal glands. Small right lower pole renal cyst. No hydronephrosis. Symmetric renal perfusion. Small focal cortical defects bilaterally may represent scarring. Diffuse atherosclerotic calcification of the aortoiliac arterial access without aneurysm or dissection. Segments of colonic underdistention with borderline wall thickening involving a short segment of the mid transverse colon as well as the colon extending from the splenic flexure to the sigmoid. Sigmoid colon diverticulosis without evidence of acute diverticulitis. The stomach and small bowel are not dilated. Post surgical changes in the proximal stomach. Previously identified gastric antral thickening is less pronounced on today's study. No free air. Trace free fluid in the pelvis. Absent uterus. Some hyperdensity noted within the urinary bladder lumen; given contrast within the ureters and proximal renal collecting systems, this likely represents excreted contrast material in the bladder. Otherwise, unremarkable appearance of the bladder. No acute osseous findings. Degenerative changes of the thoracic and lumbar spine with Grade 1 anterolisthesis at L4-L5 and L5-S1. IMPRESSION: 1. UNDERDISTENTION WITH BORDERLINE WALL THICKENING OF THE COLON INVOLVING THE TRANSVERSE, DESCENDING AND SIGMOID COLON; MAY REPRESENT MILD NONSPECIFIC COLITIS VERSUS TRANSIENT ANATOMIC UNDERDISTENTION. 2. OTHERWISE, NO ACUTE FINDINGS IN THE ABDOMEN OR PELVIS. 3. SIGMOID COLON DIVERTICULOSIS WITHOUT EVIDENCE OF ACUTE DIVERTICULITIS. 4. TRACE FLUID IN THE PELVIS, NONSPECIFIC. 5. NOT MENTIONED ABOVE, THERE ARE SMALL PERIUMBILICAL AND SUPRAUMBILICAL FAT CONTAINING VENTRAL ABDOMINAL WALL HERNIAS. JOB NUMBER: [id number] [facility]
== END 2019-02-23 16:00 | disposition home or self-care (01) ==
LOC: ER 11:48 → MEDSURG 15:24 → INTOOBSV 15:24
PROVIDERS: ADMIT Internal Medicine; ATTEND Internal Medicine
DX: R11.2 Nausea with vomiting, unspecified (principal); R10.9 Unspecified abdominal pain; J44.9 Chronic obstructive pulmonary disease, unspecified; I48.91 Unspecified atrial fibrillation; Z79.01 Long term (current) use of anticoagulants; M19.90 Unspecified osteoarthritis, unspecified site; Z09 Encounter for follow-up examination after completed treatment for conditions other than malignant neoplasm; Z95.0 Presence of cardiac pacemaker; Z87.891 Personal history of nicotine dependence; Z86.711 Personal history of pulmonary embolism; Z86.718 Personal history of other venous thrombosis and embolism; Z86.73 Personal history of transient ischemic attack (TIA), and cerebral infarction without residual deficits; Z87.19 Personal history of other diseases of the digestive system
CPT/HCPCS: 74177; 80053; 81003; 83605; 83690; 85025; 85027; 85610; 85730; 93005; 93010; 94640; 94760; 96365; 96366; 96374; 96375; 99220; 99285; C9113; J1200; J2405; J2550; J3480; J7030